=== PATIENT | male | born 1970 | race Caucasian/White ===

== ENCOUNTER 2018-07-16 16:12 | Emergency (ER) | payer OTHER ==
--- NOTE | 2018-07-16 16:23 | ER Report ---
History and Physical Time Seen By MD: 16:23 Hx. of Stated Complaint: PERIOD WHERE SPEECH WAS ABNORMAL AND PT FELT FOGGY HPI/ROS CHIEF COMPLAINT: Difficulty with speech 3 minutes, complete resolution HISTORY OF PRESENT ILLNESS: 47-year-old male patient presents to emergency room with complaint of difficulty with speech 3 minutes. Patient states he was trying to talk, but his states that he was not able to make any sense. Patient states this lasts approximately 3 minutes. After which time he was head down and rested for a little bit and then he was fine. Patient does have a history of atrial fibrillation, he states he is no longer taking a blood thinner. He states that he does take an 81 mg aspirin twice a day. Patient denies any fevers, chills, nausea, vomiting or diarrhea. Patient states that he did have a stomach bug which last approximately a week, starting a week ago and has been resolved for the last 3 days. Patient states is not taking any medication for this. REVIEW OF SYSTEMS: Respiratory: No cough, no dyspnea. Cardiovascular: No chest pain, no palpitations. Gastrointestinal: No vomiting, no abdominal pain. Musculoskeletal: No back pain. Allergies: Uncoded Allergies: SEASONAL ALLERGIES (Allergy, Unknown, 07/16/18) Home Meds Active Scripts Rivaroxaban 20 Mg (XARELTO 20 MG) 20 Mg Tablet, 20 MG PO DAILY, #30 TAB Prov:GEORGINA SOLIS NEO 07/16/18 Reported Medications Multivitamin (ONE DAILY MULTIVITAMIN) 1 Each Tablet, 1 EACH PO 07/16/18 Loratadine/Pseudoephedrine (CLARITIN-D 12 HOUR TABLET) 1 Each Tab.er.12h, 1 EACH PO 07/16/18 Aspirin (ASPIR 81) 81 Mg Tablet.dr, 81 MG PO BID, TAB 07/16/18 Metoprolol Tartrate (METOPROLOL TARTRATE) 25 Mg Tablet, 1 TAB PO BID, TAB 07/16/18 Past Medical/Surgical History Patient has a past medical history of cardiomyopathy, hyperlipidemia. Patient has a surgical history of pacemaker with defibrillator placed Reviewed Nurses Notes: Yes Constitutional Vital Sign - Last 24 Hours 07/16/18 07/16/18 07/16/18 16:18 16:30 17:30 Temp 98.0 Pulse 65 64 66 Resp 16 8 17 B/P (MAP) 127/80 112/80 (91) 125/76 (92) Pulse Ox 96 98 94 O2 Delivery Room Air Physical Exam General Appearance: The patient is alert, has no immediate need for airway protection and no current signs of toxicity. Respiratory: Chest is non tender, lungs are clear to auscultation. Cardiac: regular rate and rhythm Gastrointestinal: Abdomen is soft and non tender, no masses, bowel sounds normal. Musculoskeletal: Neck: Neck is supple and non tender. Extremities have full range of motion and are non tender. Skin: No rashes or lesions. Neuro: Patient is alert and oriented 4, cranial nerves II through XII grossly intact. DIFFERENTIAL DIAGNOSIS: After history and physical exam differential diagnosis was considered for TIA, stroke, hypovolemia, migraine. Medical Decision Making Data Points Result Diagram: 07/16/18 1620 07/16/18 1620 Laboratory Hematology Test 07/16/18 16:20 07/16/18 17:06 Red Blood Count 4.55 M/uL (4.00-5.60) Mean Corpuscular Volume 94.7 fL (80.0-96.0) Mean Corpuscular Hemoglobin 31.8 pg (26.0-33.0) Mean Corpuscular Hemoglobin Concent 33.6 g/dL (32.0-36.0) Red Cell Distribution Width 12.7 % (11.5-14.5) Mean Platelet Volume 8.0 fL (7.2-11.1) Neutrophils (%) (Auto) % (39.4-72.5) Lymphocytes (%) (Auto) % (17.6-49.6) Monocytes (%) (Auto) % (4.1-12.4) Eosinophils (%) (Auto) % (0.4-6.7) Basophils (%) (Auto) % (0.3-1.4) Nucleated RBC Relative Count (auto) /100WBC Neutrophils # (Auto) K/uL (2.0-7.4) Lymphocytes # (Auto) K/uL (1.3-3.6) Monocytes # (Auto) K/uL (0.3-1.0) Eosinophils # (Auto) K/uL (0.0-0.5) Basophils # (Auto) K/uL (0.0-0.1) Nucleated RBC Absolute Count (auto) K/uL Neutrophils % (Manual) 44 % (39.4-72.5) Lymphocytes % (Manual) 39 % (17.6-49.6) Monocytes % (Manual) 8 % (4.1-12.4) Eosinophils % (Manual) 7 % (0.4-6.7) Basophils % (Manual) 2 % (0.3-1.4) Peripheral Blood Smear Yes Y/N Sodium Level 136 mmol/L (137-145) Potassium Level 4.1 mmol/L (3.5-5.0) Chloride Level 100 mmol/L (98-107) Carbon Dioxide Level 30 mmol/L (22-30) Blood Urea Nitrogen 18 mg/dl (9-21) Creatinine 1.00 mg/dl (0.66-1.25) Glomerular Filtration Rate Calc > 60.0 Random Glucose 108 mg/dl (75-110) Calcium Level 9.3 mg/dl (8.4-10.2) Total Bilirubin 0.4 mg/dl (0.2-1.3) Aspartate Amino Transf (AST/SGOT) 22 U/L (0-35) Alanine Aminotransferase (ALT/SGPT) 33 U/L (0-56) Alkaline Phosphatase 56 U/L (0-126) Troponin I < 0.012 ng/ml Total Protein 7.2 g/dl (6.3-8.2) Albumin 3.9 g/dl (3.5-5.0) Serum Alcohol < 10 mg/dl Urine Color Yellow Urine Clarity Clear Urine pH 5.0 pH (4.8-9.5) Urine Specific [place] 1.019 Urine Protein Negative mg/dL (NEGATIVE) Urine Glucose (UA) Negative mg/dL (NEGATIVE) Urine Ketones Trace mg/dL (NEGATIVE) Urine Blood Negative (NEGATIVE) Urine Nitrite Negative (NEGATIVE) Urine Bilirubin Negative (NEGATIVE) Urine Urobilinogen Negative mg/dL (0.2-1.9) Urine Leukocyte Esterase Negative (NEGATIVE) Urine RBC <1 /HPF (0-2/HPF) Urine WBC 1 /HPF (0-5/HPF) Urine Squamous Epithelial Cells Many /LPF (</=FEW) Urine Bacteria Negative /HPF (NONE-FEW) Urine Mucus Few /HPF (NONE-FEW) Urine Opiates Screen Negative Urine Barbiturates Screen Negative Ur Tricyclic Antidepressants Screen Negative Urine Phencyclidine Screen Negative Urine Amphetamines Screen Negative Urine Benzodiazepines Screen Negative Urine Cocaine Screen Negative Urine Cannabinoids Screen Negative Chemistry Test 07/16/18 16:20 07/16/18 17:06 White Blood Count 6.6 k/uL (4.5-11.0) Red Blood Count 4.55 M/uL (4.00-5.60) Hemoglobin 14.5 g/dL (14.0-18.0) Hematocrit 43.1 % (42.0-52.0) Mean Corpuscular Volume 94.7 fL (80.0-96.0) Mean Corpuscular Hemoglobin 31.8 pg (26.0-33.0) Mean Corpuscular Hemoglobin Concent 33.6 g/dL (32.0-36.0) Red Cell Distribution Width 12.7 % (11.5-14.5) Platelet Count 233 K/uL (150-450) Mean Platelet Volume 8.0 fL (7.2-11.1) Neutrophils (%) (Auto) % (39.4-72.5) Lymphocytes (%) (Auto) % (17.6-49.6) Monocytes (%) (Auto) % (4.1-12.4) Eosinophils (%) (Auto) % (0.4-6.7) Basophils (%) (Auto) % (0.3-1.4) Nucleated RBC Relative Count (auto) /100WBC Neutrophils # (Auto) K/uL (2.0-7.4) Lymphocytes # (Auto) K/uL (1.3-3.6) Monocytes # (Auto) K/uL (0.3-1.0) Eosinophils # (Auto) K/uL (0.0-0.5) Basophils # (Auto) K/uL (0.0-0.1) Nucleated RBC Absolute Count (auto) K/uL Neutrophils % (Manual) 44 % (39.4-72.5) Lymphocytes % (Manual) 39 % (17.6-49.6) Monocytes % (Manual) 8 % (4.1-12.4) Eosinophils % (Manual) 7 % (0.4-6.7) Basophils % (Manual) 2 % (0.3-1.4) Peripheral Blood Smear Yes Y/N Glomerular Filtration Rate Calc > 60.0 Calcium Level 9.3 mg/dl (8.4-10.2) Total Bilirubin 0.4 mg/dl (0.2-1.3) Aspartate Amino Transf (AST/SGOT) 22 U/L (0-35) Alanine Aminotransferase (ALT/SGPT) 33 U/L (0-56) Alkaline Phosphatase 56 U/L (0-126) Troponin I < 0.012 ng/ml Total Protein 7.2 g/dl (6.3-8.2) Albumin 3.9 g/dl (3.5-5.0) Serum Alcohol < 10 mg/dl Urine Color Yellow Urine Clarity Clear Urine pH 5.0 pH (4.8-9.5) Urine Specific [place] 1.019 Urine Protein Negative mg/dL (NEGATIVE) Urine Glucose (UA) Negative mg/dL (NEGATIVE) Urine Ketones Trace mg/dL (NEGATIVE) Urine Blood Negative (NEGATIVE) Urine Nitrite Negative (NEGATIVE) Urine Bilirubin Negative (NEGATIVE) Urine Urobilinogen Negative mg/dL (0.2-1.9) Urine Leukocyte Esterase Negative (NEGATIVE) Urine RBC <1 /HPF (0-2/HPF) Urine WBC 1 /HPF (0-5/HPF) Urine Squamous Epithelial Cells Many /LPF (</=FEW) Urine Bacteria Negative /HPF (NONE-FEW) Urine Mucus Few /HPF (NONE-FEW) Urine Opiates Screen Negative Urine Barbiturates Screen Negative Ur Tricyclic Antidepressants Screen Negative Urine Phencyclidine Screen Negative Urine Amphetamines Screen Negative Urine Benzodiazepines Screen Negative Urine Cocaine Screen Negative Urine Cannabinoids Screen Negative Toxicology Test 07/16/18 16:20 07/16/18 17:06 Serum Alcohol < 10 mg/dl Urine Opiates Screen Negative Urine Barbiturates Screen Negative Ur Tricyclic Antidepressants Screen Negative Urine Phencyclidine Screen Negative Urine Amphetamines Screen Negative Urine Benzodiazepines Screen Negative Urine Cocaine Screen Negative Urine Cannabinoids Screen Negative Urinalysis Test 07/16/18 17:06 Urine Color Yellow Urine Clarity Clear Urine pH 5.0 pH (4.8-9.5) Urine Specific [place] 1.019 Urine Protein Negative mg/dL (NEGATIVE) Urine Glucose (UA) Negative mg/dL (NEGATIVE) Urine Ketones Trace mg/dL (NEGATIVE) Urine Blood Negative (NEGATIVE) Urine Nitrite Negative (NEGATIVE) Urine Bilirubin Negative (NEGATIVE) Urine Urobilinogen Negative mg/dL (0.2-1.9) Urine Leukocyte Esterase Negative (NEGATIVE) Urine RBC <1 /HPF (0-2/HPF) Urine WBC 1 /HPF (0-5/HPF) Urine Squamous Epithelial Cells Many /LPF (</=FEW) Urine Bacteria Negative /HPF (NONE-FEW) Urine Mucus Few /HPF (NONE-FEW) EKG/Imaging EKG Interpretation 12 lead EKG: Rhythm: A. fib with PVCs, ventricular rate of 67 bpm [place]: Left axis deviation QRS: Right bundle branch block ST segments: normal Imaging CHEST PA LAT Additional pertinent History: Difficulty finding words COMPARISON STUDIES: none FINDINGS: Support lines and catheters: Cardiac pacer from the left subclavian approach. Lungs and Pleura: Lung skinner well expanded with no infiltrates or consolidations. No parenchymal mass lesions are seen. There are no effusions Heart and vasculature: Negative. Davina and Mediastinum: Negative. Bones and Chest wall: Negative. Upper Abdomen: Negative. IMPRESSION: 1. Negative chest Report Dictated By: Johnson Giraldo MD at 07/16/2018 5:13 PM Report E-Signed By: Johnson Giraldo MD at 07/16/2018 5:[address] BRAIN NO CONTRAST EXAMINATION: CT head/brain without contrast HISTORY: Difficulty finding words. TECHNIQUE: Contiguous axial images were obtained from the skull base to the vertex without intravenous contrast. One of the following dose optimization techniques was utilized in the performance of this exam: Automated exposure control; adjustment of the mA and/or kV according to the patient's size; or use of an iterative reconstruction technique. Specific details can be referenced in the facility's radiology CT exam operational policy. COMPARISON STUDIES: None FINDINGS: Ventricles/sulci/fissures: Midline in position and normal in configuration. Masses/hemorrhage/midline shift: No parenchymal mass lesions. No hemorrhage White matter: No white matter edema Evangelista-white differentiation: Well-maintained with no cerebral edema or sulci effacement. Extra-axial spaces: No subdural or epidural fluid collections. Dural venous sinuses/arterial structures: Negative Skull base/calvarium: No calvarial or skull base abnormalities. Visualized mastoid air cells/paranasal sinuses: Complete opacification of the right maxillary sinus. Small amount of soft tissue change in the posterior aspect of the left maxillary sinus. Frontal ethmoid and sphenoid sinuses are well-aerated. IMPRESSION: 1. No acute intracranial pathology. 2. Maxillary sinusitis right greater than left Report Dictated By: Johnson Giraldo MD at 07/16/2018 5:08 PM Report E-Signed By: Johnson Giraldo MD at 07/16/2018 5:12 PM ED Course/Re-evaluation ED Course Patient was admitted to the exam room, history and physical were obtained. D ifferential diagnoses were considered. On examination lungs are clear, heart is regular, abdomen soft nontender. Patient neurologically is intact, equal strength throughout, no difficulties with speech here. We did do a CBC, CMP, urinalysis, drug screen, troponin, EKG, chest x-ray and CT scan of the head. Lab results were unremarkable, CT scan of the head showed no acute intracranial abnormalities, however did show maxillary sinusitis with worsening symptoms on the right side versus the left. Patient had been complaining of some allergic symptoms, congestion I believe that is likely the underlying cause of the fluid in the sinuses. Chest x-ray was normal, EKG showed atrial fibrillation. Patient does have a history of atrial fibrillation, however he is, off his anticoagulants. I believe the patient likely had a TIA secondary to his atrial fibrillation. I discussed the case with Dr. Stone, hospitalist. He felt that there would not be any reason to admit as we knew the underlying cause of the TIA being the A. fib. His recommendation was to place him on an anticoagulant and discharge home to follow-up with his primary care provider. I discussed options with the patient and his family, namely that he could be admitted and monitored or he can be discharged home with anticoagulation. They opted to be discharged home with anticoagulation. They're to return to emergency room if he has any recurrences of his symptoms. He is to follow-up with his primary care provider in the next week. Patient and family verbalized understanding and agreement with plan. Decision to Disposition Date: July 16, 2018 Decision to Disposition Time: 18:06 Depart Departure Latest Vital Signs Vital Signs Date Time Temp Pulse Resp B/P (MAP) Pulse Ox O2 Delivery O2 Flow Rate FiO2 07/16/18 17:30 66 17 125/76 (92) 94 07/16/18 16:18 98.0 Room Air Impression: Primary Impression: TIA (transient ischemic attack) Condition: Improved Disposition: HOME OR SELF-CARE New Scripts Rivaroxaban 20 Mg (XARELTO 20 MG) 20 Mg Tablet 20 MG PO DAILY, #30 TAB Prov: GEORGINA SOLIS 07/16/18 Patient Instructions: Transient Ischemic Attack (ED) Additional Instructions: Continue with normal medications. Follow up with your primary care provider in the next week. Get plenty of rest. Return to the ER with any recurrences. GEORGINA SOLIS July 16, 2018 16:23
[2018-07-16] MEDS ORDERED: METO25TA93 PO (16:26)
[2018-07-16] MEDS ORDERED: ASPI-1471 PO (16:26)
[2018-07-16] MEDS ORDERED: LORA-809 PO (16:26)
[2018-07-16] MEDS ORDERED: MULT-1354 PO (16:26)
[2018-07-16] MEDS ORDERED: NS(*) 0.9% 1000 ML BAG 1,000 ML IV ONE (16:32)
--- NOTE | 2018-07-16 16:48 | EKG ---
FACILITY: [facility] - [place] PATIENT NAME: ARACELI BRYAN : [id number] MR: [id number] V: [id number] EXAM DATE: ORDERING PHYSICIAN: GEORGINA SOLIS TECHNOLOGIST: SONJA Test Reason : CARDIAC HISTORY Blood Pressure : / mmHG Vent. Rate : 067 BPM Atrial Rate : 067 BPM P-R Int : 000 ms QRS Dur : 184 ms QT Int : 472 ms P-R-T Axes : 000 -81 090 degrees QTc Int : 498 ms Ventricular pacemaker Possible premature junctional/ventricular complexes Abnormal ECG No previous ECGs available Confirmed by AFUA CORTEZ ([id number] on 07/16/2018 5:55:31 PM Referred By: GEORGINA Confirmed By:AFUA CORTEZ
[2018-07-16 17:08] LABS: PLATELET COUNT, AUTOMATED 233 K/uL (150-450)
--- NOTE | 2018-07-16 17:15 | RADIOLOGY IMAGING REPORT ---
FACILITY: [facility] PATIENT NAME: Larry Crane : 1970 MR: [id number] V: [id number] EXAM DATE: [id number] ORDERING PHYSICIAN: GEORGINA SOLIS TECHNOLOGIST: Location: [facility] Patient: Larry Crane : 1970 Visit/Account:[id number] Date of Sevice: 07/16/2018 CT BRAIN NO CONTRAST EXAMINATION: CT head/brain without contrast HISTORY: Difficulty finding words. TECHNIQUE: Contiguous axial images were obtained from the skull base to the vertex without intravenou s contrast. One of the following dose optimization techniques was utilized in the performance of this exam: Autom ated exposure control; adjustment of the mA and/or kV according to the patient's size; or use of an i terative reconstruction technique. Specific details can be referenced in the facility's radiology C T exam operational policy. COMPARISON STUDIES: None FINDINGS: Ventricles/sulci/fissures: Midline in position and normal in configuration. Masses/hemorrhage/midline shift: No parenchymal mass lesions. No hemorrhage White matter: No white matter edema Evangelista-white differentiation: Well-maintained with no cerebral edema or sulci effacement. Extra-axial spaces: No subdural or epidural fluid collections. Dural venous sinuses/arterial structures: Negative Skull base/calvarium: No calvarial or skull base abnormalities. Visualized mastoid air cells/paranasal sinuses: Complete opacification of the right maxillary sinus. Small amount of soft tissue change in the posterior aspect of the left maxillary sinus. Frontal ethmo id and sphenoid sinuses are well-aerated. IMPRESSION: 1. No acute intracranial pathology. 2. Maxillary sinusitis right greater than left Report Dictated By: Johnson Giraldo MD at 07/16/2018 5:08 PM Report E-Signed By: Johnson Giraldo MD at 07/16/2018 5:12 PM WSN:[id number]
--- NOTE | 2018-07-16 17:19 | RADIOLOGY IMAGING REPORT ---
FACILITY: [facility] [place] PATIENT NAME: Larry Crane : 1970 MR: [id number] V: [id number] EXAM DATE: ORDERING PHYSICIAN: GEORGINA SOLIS TECHNOLOGIST: Location: [facility] - [place] Patient: Larry Crane : 1970 Visit/Account:[id number] Date of Sevice: 07/16/2018 CHEST PA LAT Additional pertinent History: Difficulty finding words COMPARISON STUDIES: none FINDINGS: Support lines and catheters: Cardiac pacer from the left subclavian approach. Lungs and Pleura: Lung skinner well expanded with no infiltrates or consolidations. No parenchymal ma ss lesions are seen. There are no effusions Heart and vasculature: Negative. Davina and Mediastinum: Negative. Bones and Chest wall: Negative. Upper Abdomen: Negative. IMPRESSION: 1. Negative chest Report Dictated By: Johnson Giraldo MD at 07/16/2018 5:13 PM Report E-Signed By: Johnson Giraldo MD at 07/16/2018 5:17 PM WSN:[id number]
[2018-07-16 17:30] VITALS: BP 125/76
[2018-07-16] MEDS ORDERED: RIVAROXABAN 10 MG TAB PO ONE (18:00)
[2018-07-16] MEDS ORDERED: RIVA20TA PO (18:07)
== END 2018-07-16 18:16 | disposition home or self-care (01) ==
LOC: ER 16:30
DX: G45.9 Transient cerebral ischemic attack, unspecified (principal); I48.91 Unspecified atrial fibrillation
CPT/HCPCS: 70450; 71046; 80305; 80320; 81001; 84484; 85025; 87088; 93005; 96360; 99284; J7030; 82040; 82247; 82310; 82374; 82435; 82565; 82947; 84075; 84132; 84155; 84295; 84450; 84460; 84520